=== PATIENT | male | born 1940 | race African-American/Black ===

== ENCOUNTER 2018-10-11 17:34 | Inpatient (IN) ==
[2018-10-11 18:49] LABS: Basophils # 0.1 10*3/uL (0.0-0.2); Basophils % 0.7 % (0.0-0.8); Eosinophils # 0.2 10*3/uL (0.0-0.87); Eosinophils % 2.2 % (0.00-10.9); Hematocrit 33.9 VOL% (42.0-52.0); Hemoglobin 10.9 GM/DL (14.0-18.0); Immature Granulocytes % 0.3 %; Immature Granulocytes Absolute 0.03 #; Lymphocytes # 1.2 10*3/uL (1.4-4.0); Lymphocytes % 13.2 % (21.2-54.2); Mean Corpuscular HGB Conc 32.2 GM/DL (32-36); Mean Corpuscular Volume 83.9 FL (87-102); Mean Platelet Volume 12.7 FL (9.6-12.0); Monocytes % 9.2 % (1.7-12.7); Neutrophils % 74.4 % (38.7-73.9); Platelet Count 212 T/CUMM (130-400); Red Blood Count 4.04 MC/CUMM (3.8-5.5); Red Cell Distribution Width 17.6 % (9.3-17.3)
[2018-10-11 18:56] LABS: INR 1.2; PT Patient Result 12.5 SECS
[2018-10-11 19:02] LABS: Albumin 3.2 G/DL (3.4-5.0); Bilirubin,Total 0.8 MG/DL (0.2-1.0); Osmolality,Calculated 289.5 MOS/KG (273-304); Total Protein 8.3 G/DL (6.4-8.3)
[2018-10-11] MEDS ORDERED: CLINDAMYCIN INJ 600 MG in PREMIX 1 EACH IV STA (19:26)
[2018-10-11] MEDS ORDERED: ACETAMINOPHEN 325 MG TABLET PO PRN (21:44)
[2018-10-11] MEDS ORDERED: VANCOMYCIN INJ 1,000 MG in SODIUM CHLORIDE 0.9% 250 ML IV ONE (21:44)
[2018-10-11] MEDS ORDERED: DOCUSATE SODIUM 100 MG CAPSULE PO PRN (21:44)
[2018-10-11] MEDS ORDERED: VANCOMYCIN INJ 1,000 MG in SODIUM CHLORIDE 0.9% 250 ML IV PRN (21:44)
[2018-10-11] MEDS ORDERED: BRINZOLAMIDE BRIMONIDINE LEFT EYE SCH (21:44)
[2018-10-11] MEDS: HEPARIN 5,000 UNIT/1 ML VIAL SUBCUT SCH (22:50)
[2018-10-11] MEDS: SEVELAMER CARBONATE POWDER 2.4 GM PACK PO SCH (23:01)
[2018-10-12 00:43] LABS: Basophils # 0.1 10*3/uL (0.0-0.2); Basophils % 0.6 % (0.0-0.8); Eosinophils # 0.2 10*3/uL (0.0-0.87); Eosinophils % 1.7 % (0.00-10.9); Hematocrit 33.4 VOL% (42.0-52.0); Hemoglobin 10.9 GM/DL (14.0-18.0); Immature Granulocytes % 0.3 %; Immature Granulocytes Absolute 0.03 #; Lymphocytes # 1.1 10*3/uL (1.4-4.0); Lymphocytes % 11.6 % (21.2-54.2); Mean Corpuscular HGB Conc 32.6 GM/DL (32-36); Mean Corpuscular Volume 84.6 FL (87-102); Mean Platelet Volume 12.1 FL (9.6-12.0); Monocytes % 7.9 % (1.7-12.7); Neutrophils % 77.9 % (38.7-73.9); Platelet Count 200 T/CUMM (130-400); Red Blood Count 3.95 MC/CUMM (3.8-5.5); Red Cell Distribution Width 17.5 % (9.3-17.3); White Blood Count 9.1 T/CUMM (4-12)
[2018-10-12 01:02] LABS: Calcium 8.7 MG/DL (8.5-10.1); Osmolality,Calculated 290.4 MOS/KG (273-304)
[2018-10-12] MEDS: HEPARIN 5,000 UNIT/1 ML VIAL SUBCUT SCH ×3 (06:28→22:16)
[2018-10-12] MEDS: SEVELAMER CARBONATE POWDER 2.4 GM PACK PO SCH ×2 (09:31→20:05)
[2018-10-12] MEDS: PANTOPRAZOLE 40 MG TABLET PO SCH (09:31)
[2018-10-12] MEDS: MULTIVITAMIN (CENTRUM) TABLET PO SCH (09:31)
[2018-10-12] MEDS: amLODIPine 2.5 MG TABLET PO SCH (09:32)
[2018-10-12 10:43] LABS: Hepatitis B Core IgM Quant < 0.05 Index; Hepatitis B Surface Ag Quant < 0.10 Index; Hepatitis B Surface Ag Result Negative (Negative); Hepatitis C Virus Ab Quant < 0.02 Index; Hepatitis C Virus Ab Result Negative (Negative)
[2018-10-12] MEDS ORDERED: BUPIVACAINE MPF 0.25% 30 ML VIAL ONE (11:20)
[2018-10-12] MEDS ORDERED: LIDOCAINE 1% 20 ML VIAL ONE (11:20)
[2018-10-12] MEDS ORDERED: SODIUM CHLORIDE 0.9% 250 ML IV SCH (11:30)
[2018-10-12] MEDS ORDERED: CLINDAMYCIN INJ 50 ML IV ONE (12:02)
[2018-10-12] MEDS ORDERED: PROPOFOL 200 MG/20 ML VIAL IV ONE (12:37)
[2018-10-12] MEDS ORDERED: ONDANSETRON 4 MG/2 ML VIAL ONE (12:38)
[2018-10-12] MEDS ORDERED: ETOMIDATE 40 MG/20 ML VIAL IV ONE (12:38)
[2018-10-12] MEDS ORDERED: SEVOFLURANE 1 UNIT/15 MINUTE INH ONE (12:38)
[2018-10-12] MEDS ORDERED: fentaNYL 100 MCG/2 ML VIAL ONE (12:38)
[2018-10-12] MEDS ORDERED: PHENYLEPHRINE 1 MG/10 ML SYRINGE IV ONE (12:38)
[2018-10-12] MEDS ORDERED: SKIN HEALING OINT (AQUAPHOR) 50 GM TUBE TOP PRN (15:47)
[2018-10-13 04:53] LABS: Basophils % 0.4 % (0.0-0.8); Eosinophils # 0.2 10*3/uL (0.0-0.87); Eosinophils % 2.2 % (0.00-10.9); Hematocrit 32.2 VOL% (42.0-52.0); Hemoglobin 10.1 GM/DL (14.0-18.0); Immature Granulocytes % 0.4 %; Immature Granulocytes Absolute 0.04 #; Lymphocytes % 11.4 % (21.2-54.2); Mean Corpuscular HGB Conc 31.4 GM/DL (32-36); Mean Corpuscular Volume 84.5 FL (87-102); Mean Platelet Volume 12.6 FL (9.6-12.0); Monocytes % 10.5 % (1.7-12.7); Neutrophils % 75.1 % (38.7-73.9); Platelet Count 193 T/CUMM (130-400); Red Blood Count 3.81 MC/CUMM (3.8-5.5); Red Cell Distribution Width 17.3 % (9.3-17.3); White Blood Count 9.1 T/CUMM (4-12)
[2018-10-13 05:11] LABS: Calcium 8.7 MG/DL (8.5-10.1); Osmolality,Calculated 276.8 MOS/KG (273-304)
[2018-10-13] MEDS: HEPARIN 5,000 UNIT/1 ML VIAL SUBCUT SCH ×3 (07:00→21:10)
[2018-10-13] MEDS: MULTIVITAMIN (CENTRUM) TABLET PO SCH (09:55)
[2018-10-13] MEDS: amLODIPine 2.5 MG TABLET PO SCH (09:55)
[2018-10-13] MEDS: PANTOPRAZOLE 40 MG TABLET PO SCH (09:55)
[2018-10-13] MEDS: SEVELAMER CARBONATE POWDER 2.4 GM PACK PO SCH ×2 (09:56→21:10)
[2018-10-14] MEDS: HEPARIN 5,000 UNIT/1 ML VIAL SUBCUT SCH ×3 (05:10→21:20)
[2018-10-14] MEDS: MULTIVITAMIN (CENTRUM) TABLET PO SCH (08:29)
[2018-10-14] MEDS: PANTOPRAZOLE 40 MG TABLET PO SCH (08:29)
[2018-10-14] MEDS: amLODIPine 2.5 MG TABLET PO SCH (08:29)
[2018-10-14] MEDS: SEVELAMER CARBONATE POWDER 2.4 GM PACK PO SCH ×2 (08:29→21:04)
[2018-10-14] MEDS: ONDANSETRON 4 MG/2 ML VIAL IV PRN (21:16)
[2018-10-15 05:50] LABS: Basophils % 0.5 % (0.0-0.8); Eosinophils # 0.2 10*3/uL (0.0-0.87); Eosinophils % 2.8 % (0.00-10.9); Hematocrit 32.1 VOL% (42.0-52.0); Hemoglobin 10.5 GM/DL (14.0-18.0); Immature Granulocytes % 0.4 %; Immature Granulocytes Absolute 0.03 #; Lymphocytes % 12.9 % (21.2-54.2); Mean Corpuscular HGB Conc 32.7 GM/DL (32-36); Mean Corpuscular Volume 83.4 FL (87-102); Monocytes % 9.2 % (1.7-12.7); Neutrophils % 74.2 % (38.7-73.9); Platelet Count 197 T/CUMM (130-400); Red Blood Count 3.85 MC/CUMM (3.8-5.5); Red Cell Distribution Width 17.3 % (9.3-17.3); White Blood Count 7.4 T/CUMM (4-12)
[2018-10-15 06:08] LABS: Calcium 9.3 MG/DL (8.5-10.1); Osmolality,Calculated 275.8 MOS/KG (273-304)
[2018-10-15] MEDS: ONDANSETRON 4 MG/2 ML VIAL IV PRN ×2 (07:00→19:51)
[2018-10-15] MEDS: HEPARIN 5,000 UNIT/1 ML VIAL SUBCUT SCH ×2 (07:00→17:10)
[2018-10-15] MEDS: amLODIPine 2.5 MG TABLET PO SCH (09:17)
[2018-10-15] MEDS: PANTOPRAZOLE 40 MG TABLET PO SCH (09:17)
[2018-10-15] MEDS: MULTIVITAMIN (CENTRUM) TABLET PO SCH (09:17)
[2018-10-15] MEDS: SEVELAMER CARBONATE POWDER 2.4 GM PACK PO SCH ×3 (09:18→21:02)
[2018-10-15] MEDS ORDERED: DIAZEPAM 5 MG TABLET PO ONE (11:44)
[2018-10-15] MEDS ORDERED: MIDAZOLAM 2 MG/2 ML VIAL IV ONE (11:44)
[2018-10-15] MEDS ORDERED: fentaNYL 100 MCG/2 ML VIAL IV ONE (11:44)
[2018-10-15] MEDS ORDERED: HEPARIN/NACL 0.9% 2 UNITS/ML 2,000 ML IV ONE (13:13)
[2018-10-15] MEDS ORDERED: fentaNYL 100 MCG/2 ML VIAL ONE (13:57)
[2018-10-15] MEDS ORDERED: MIDAZOLAM 2 MG/2 ML VIAL ONE (13:58)
[2018-10-15] MEDS ORDERED: HEPARIN 5,000 UNIT/1 ML VIAL ONE (13:58)
[2018-10-16] MEDS: HEPARIN 5,000 UNIT/1 ML VIAL SUBCUT SCH ×3 (02:30→17:12)
[2018-10-16 05:40] LABS: Calcium 9.7 MG/DL (8.5-10.1); Osmolality,Calculated 282.5 MOS/KG (273-304)
[2018-10-16 05:58] LABS: Basophils # 0.1 10*3/uL (0.0-0.2); Basophils % 0.7 % (0.0-0.8); Eosinophils # 0.2 10*3/uL (0.0-0.87); Eosinophils % 2.2 % (0.00-10.9); Hematocrit 32.8 VOL% (42.0-52.0); Hemoglobin 10.6 GM/DL (14.0-18.0); Immature Granulocytes % 0.8 %; Immature Granulocytes Absolute 0.06 #; Lymphocytes % 13.2 % (21.2-54.2); Mean Corpuscular HGB Conc 32.3 GM/DL (32-36); Mean Corpuscular Volume 84.3 FL (87-102); Mean Platelet Volume 13.3 FL (9.6-12.0); Neutrophils % 72.1 % (38.7-73.9); Platelet Count 183 T/CUMM (130-400); Red Blood Count 3.89 MC/CUMM (3.8-5.5); Red Cell Distribution Width 17.8 % (9.3-17.3); White Blood Count 7.3 T/CUMM (4-12)
[2018-10-16] MEDS: MULTIVITAMIN (CENTRUM) TABLET PO SCH (12:50)
[2018-10-16] MEDS: SEVELAMER CARBONATE POWDER 2.4 GM PACK PO SCH (12:51)
[2018-10-16] MEDS: PANTOPRAZOLE 40 MG TABLET PO SCH (12:51)
[2018-10-16] MEDS: amLODIPine 2.5 MG TABLET PO SCH (12:51)
[2018-10-16 16:42] VITALS: BP 104/55
== END 2018-10-16 18:26 | disposition swing bed (61) | DRG 623 ==
LOC: N.ED 17:34 → N.EDINP 20:37 → N.3E 21:11
PROVIDERS: ADMIT Internal Medicine; ATTEND Internal Medicine

== ENCOUNTER 2019-07-07 08:30 | Inpatient (IN) ==
[2019-07-07 09:38] LABS: Basophils % 0.9 % (0.0-0.8); Eosinophils % 0.7 % (0.00-10.9); Hematocrit 33.5 VOL% (42.0-52.0); Hemoglobin 10.1 GM/DL (14.0-18.0); Immature Granulocytes % 0.2 %; Immature Granulocytes Absolute 0.01 #; Lymphocytes # 1.1 10*3/uL (1.4-4.0); Lymphocytes % 23.9 % (21.2-54.2); Mean Corpuscular HGB Conc 30.1 GM/DL (32-36); Mean Corpuscular Volume 87.2 FL (87-102); Mean Platelet Volume 12.6 FL (9.6-12.0); Monocytes % 9.7 % (1.7-12.7); Neutrophils % 64.6 % (38.7-73.9); Platelet Count 158 T/CUMM (130-400); Red Blood Count 3.84 MC/CUMM (3.8-5.5); Red Cell Distribution Width 17.9 % (9.3-17.3); White Blood Count 4.4 T/CUMM (4-12)
[2019-07-07 10:02] LABS: Albumin 3.1 G/DL (3.4-5.0); Calcium 9.1 MG/DL (8.5-10.1); Osmolality,Calculated 286.7 MOS/KG (273-304)
[2019-07-07 10:18] LABS: Ferritin 3525.7 ng/ml (26-388)
[2019-07-07] MEDS ORDERED: AZITHROMYCIN 250 MG TABLET PO STA (10:23)
[2019-07-07] MEDS ORDERED: cefTRIAXone 1,000 MG in SODIUM CHLORIDE 0.9% 100 ML IV STA (10:23)
[2019-07-07] MEDS ORDERED: DEXTROSE 10% 250 ML BAG IV PRN (11:15)
[2019-07-07] MEDS ORDERED: ZALEPLON 5 MG CAPSULE PO PRN (11:15)
[2019-07-07] MEDS ORDERED: ONDANSETRON 4 MG/2 ML VIAL IV PRN (11:15)
[2019-07-07] MEDS ORDERED: DOCUSATE SODIUM 100 MG CAPSULE PO PRN (11:15)
[2019-07-07] MEDS ORDERED: GLUCAGON 1 MG VIAL IM PRN (11:15)
[2019-07-07] MEDS ORDERED: SODIUM CHLORIDE 0.9% 1,000 ML IV SCH (11:30)
[2019-07-07] MEDS: SEVELAMER CARBONATE 800 MG TABLET PO SCH ×2 (12:30→17:41)
[2019-07-07] MEDS: PANTOPRAZOLE 40 MG TABLET PO SCH (12:30)
[2019-07-07 13:41] LABS: ABG Base Excess 6.4 MMOL/L (-2.5-2.5); ABG HCO3 30.2 MMOL/L (20-26); ABG Oxygen Saturation 95.8 % (95-100); ABG PCO2 62.5 MM HG (35-48); ABG PH 7.342 (7.35-7.45); ABG PO2 83.4 MM HG (80-95); Allen Test Positive
[2019-07-07] MEDS: INSULIN REGULAR 100 UNIT/ML SUBCUT SCH ×2 (14:19→17:41)
[2019-07-07] MEDS: MIDODRINE 5 MG TABLET PO SCH ×2 (14:20→22:18)
[2019-07-07] MEDS: BRINZOLAMIDE 1% OPH SUSP 10 ML BOTTLE LEFT EYE SCH (22:17)
[2019-07-07] MEDS: LATANOPROST 0.005% OPH SOLN 2.5 ML BOTTLE LEFT EYE SCH (22:18)
[2019-07-07] MEDS: ASCORBIC ACID 500 MG TABLET PO SCH (22:18)
[2019-07-07] MEDS: GABAPENTIN 300 MG CAPSULE PO SCH (22:18)
[2019-07-08] MEDS: INSULIN REGULAR 100 UNIT/ML SUBCUT SCH ×5 (00:12→21:40)
[2019-07-08 07:28] LABS: Basophils % 0.7 % (0.0-0.8); Eosinophils # 0.1 10*3/uL (0.0-0.87); Eosinophils % 1.7 % (0.00-10.9); Hematocrit 33.9 VOL% (42.0-52.0); Hemoglobin 10.3 GM/DL (14.0-18.0); Immature Granulocytes % 0.2 %; Immature Granulocytes Absolute 0.01 #; Lymphocytes # 1.1 10*3/uL (1.4-4.0); Lymphocytes % 26.5 % (21.2-54.2); Mean Corpuscular HGB Conc 30.4 GM/DL (32-36); Mean Corpuscular Volume 86.7 FL (87-102); Mean Platelet Volume 11.8 FL (9.6-12.0); Monocytes % 7.3 % (1.7-12.7); Neutrophils % 63.6 % (38.7-73.9); Platelet Count 144 T/CUMM (130-400); Red Blood Count 3.91 MC/CUMM (3.8-5.5); Red Cell Distribution Width 17.7 % (9.3-17.3); White Blood Count 4.2 T/CUMM (4-12)
[2019-07-08 07:40] LABS: Calcium 9.7 MG/DL (8.5-10.1); Osmolality,Calculated 282.5 MOS/KG (273-304)
[2019-07-08] MEDS: BRINZOLAMIDE 1% OPH SUSP 10 ML BOTTLE LEFT EYE SCH ×2 (09:34→21:40)
[2019-07-08] MEDS: DILTIAZEM CD 120 MG CAPSULE PO SCH (09:34)
[2019-07-08] MEDS: SEVELAMER CARBONATE 800 MG TABLET PO SCH ×3 (09:34→17:27)
[2019-07-08] MEDS: MULTIVITAMIN (CENTRUM) TABLET PO SCH (09:35)
[2019-07-08] MEDS: MIDODRINE 5 MG TABLET PO SCH ×3 (09:35→21:40)
[2019-07-08] MEDS: CLOPIDOGREL 75 MG TABLET PO SCH (09:35)
[2019-07-08] MEDS: IRON (CARBONYL)/VIT C/B12/FA TABLET PO SCH (09:35)
[2019-07-08] MEDS: CETIRIZINE 10 MG TABLET PO SCH (09:35)
[2019-07-08] MEDS: PANTOPRAZOLE 40 MG TABLET PO SCH (09:35)
[2019-07-08] MEDS: ASCORBIC ACID 500 MG TABLET PO SCH ×2 (09:35→21:40)
[2019-07-08] MEDS: ACETAMINOPHEN 325 MG TABLET PO PRN ×2 (09:37→21:40)
[2019-07-08] MEDS: LATANOPROST 0.005% OPH SOLN 2.5 ML BOTTLE LEFT EYE SCH (21:40)
[2019-07-08] MEDS: GABAPENTIN 300 MG CAPSULE PO SCH (21:40)
[2019-07-09] MEDS: INSULIN REGULAR 100 UNIT/ML SUBCUT SCH ×3 (05:49→18:22)
[2019-07-09 06:18] LABS: Basophils % 0.8 % (0.0-0.8); Eosinophils # 0.1 10*3/uL (0.0-0.87); Hematocrit 33.1 VOL% (42.0-52.0); Immature Granulocytes % 0.5 %; Immature Granulocytes Absolute 0.02 #; Lymphocytes # 1.2 10*3/uL (1.4-4.0); Lymphocytes % 30.3 % (21.2-54.2); Mean Corpuscular HGB Conc 30.2 GM/DL (32-36); Mean Corpuscular Volume 87.8 FL (87-102); Mean Platelet Volume 12.2 FL (9.6-12.0); Monocytes % 7.1 % (1.7-12.7); Neutrophils % 59.3 % (38.7-73.9); Platelet Count 178 T/CUMM (130-400); Red Blood Count 3.77 MC/CUMM (3.8-5.5); Red Cell Distribution Width 17.5 % (9.3-17.3)
[2019-07-09 07:27] LABS: Calcium 9.2 MG/DL (8.5-10.1); Osmolality,Calculated 293.4 MOS/KG (273-304)
[2019-07-09] MEDS: DILTIAZEM CD 120 MG CAPSULE PO SCH (09:30)
[2019-07-09] MEDS: MIDODRINE 5 MG TABLET PO SCH ×3 (09:30→21:25)
[2019-07-09] MEDS: MULTIVITAMIN (CENTRUM) TABLET PO SCH (09:30)
[2019-07-09] MEDS: PANTOPRAZOLE 40 MG TABLET PO SCH (09:30)
[2019-07-09] MEDS: SEVELAMER CARBONATE 800 MG TABLET PO SCH ×3 (09:30→18:22)
[2019-07-09] MEDS: IRON (CARBONYL)/VIT C/B12/FA TABLET PO SCH (09:30)
[2019-07-09] MEDS: ASCORBIC ACID 500 MG TABLET PO SCH ×2 (09:30→21:25)
[2019-07-09] MEDS: CETIRIZINE 10 MG TABLET PO SCH (09:30)
[2019-07-09] MEDS: BRINZOLAMIDE 1% OPH SUSP 10 ML BOTTLE LEFT EYE SCH ×2 (09:30→21:25)
[2019-07-09] MEDS: CLOPIDOGREL 75 MG TABLET PO SCH (09:30)
[2019-07-09] MEDS: GABAPENTIN 300 MG CAPSULE PO SCH (21:25)
[2019-07-09] MEDS: LATANOPROST 0.005% OPH SOLN 2.5 ML BOTTLE LEFT EYE SCH (21:25)
[2019-07-09] MEDS: ACETAMINOPHEN 325 MG TABLET PO PRN (21:25)
[2019-07-10] MEDS: INSULIN REGULAR 100 UNIT/ML SUBCUT SCH ×5 (00:05→23:54)
[2019-07-10] MEDS: ACETAMINOPHEN 325 MG TABLET PO PRN ×3 (05:30→23:54)
[2019-07-10 07:02] LABS: Calcium 9.9 MG/DL (8.5-10.1); Osmolality,Calculated 285.4 MOS/KG (273-304)
[2019-07-10 07:23] LABS: Basophils % 0.6 % (0.0-0.8); Eosinophils % 0.6 % (0.00-10.9); Hematocrit 34.2 VOL% (42.0-52.0); Hemoglobin 10.3 GM/DL (14.0-18.0); Immature Granulocytes % 0.4 %; Immature Granulocytes Absolute 0.02 #; Lymphocytes # 1.7 10*3/uL (1.4-4.0); Lymphocytes % 36.6 % (21.2-54.2); Mean Corpuscular HGB Conc 30.1 GM/DL (32-36); Mean Corpuscular Volume 88.8 FL (87-102); Mean Platelet Volume 13.2 FL (9.6-12.0); Monocytes % 7.4 % (1.7-12.7); Neutrophils % 54.4 % (38.7-73.9); Platelet Count 209 T/CUMM (130-400); Red Blood Count 3.85 MC/CUMM (3.8-5.5); Red Cell Distribution Width 17.8 % (9.3-17.3); White Blood Count 4.7 T/CUMM (4-12)
[2019-07-10] MEDS: MULTIVITAMIN (CENTRUM) TABLET PO SCH (09:00)
[2019-07-10] MEDS: CETIRIZINE 10 MG TABLET PO SCH (09:00)
[2019-07-10] MEDS: BRINZOLAMIDE 1% OPH SUSP 10 ML BOTTLE LEFT EYE SCH ×2 (09:00→20:40)
[2019-07-10] MEDS: PANTOPRAZOLE 40 MG TABLET PO SCH (09:00)
[2019-07-10] MEDS: IRON (CARBONYL)/VIT C/B12/FA TABLET PO SCH (09:00)
[2019-07-10] MEDS: ASCORBIC ACID 500 MG TABLET PO SCH ×2 (09:00→20:40)
[2019-07-10] MEDS: MIDODRINE 5 MG TABLET PO SCH ×3 (09:00→20:40)
[2019-07-10] MEDS: SEVELAMER CARBONATE 800 MG TABLET PO SCH ×3 (09:00→16:08)
[2019-07-10] MEDS: CLOPIDOGREL 75 MG TABLET PO SCH (09:00)
[2019-07-10] MEDS: DILTIAZEM CD 120 MG CAPSULE PO SCH (09:00)
[2019-07-10] MEDS: GABAPENTIN 300 MG CAPSULE PO SCH (20:40)
[2019-07-10] MEDS: LATANOPROST 0.005% OPH SOLN 2.5 ML BOTTLE LEFT EYE SCH (20:40)
[2019-07-11 04:50] LABS: Basophils % 0.4 % (0.0-0.8); Eosinophils % 0.8 % (0.00-10.9); Hematocrit 33.4 VOL% (42.0-52.0); Hemoglobin 9.8 GM/DL (14.0-18.0); Immature Granulocytes % 0.2 %; Immature Granulocytes Absolute 0.01 #; Lymphocytes # 1.6 10*3/uL (1.4-4.0); Lymphocytes % 32.2 % (21.2-54.2); Mean Corpuscular HGB Conc 29.3 GM/DL (32-36); Mean Corpuscular Volume 88.8 FL (87-102); Neutrophils % 60.4 % (38.7-73.9); Platelet Count 226 T/CUMM (130-400); Red Blood Count 3.76 MC/CUMM (3.8-5.5); Red Cell Distribution Width 17.6 % (9.3-17.3)
[2019-07-11 05:08] LABS: Calcium 9.1 MG/DL (8.5-10.1); Osmolality,Calculated 290.5 MOS/KG (273-304)
[2019-07-11] MEDS: INSULIN REGULAR 100 UNIT/ML SUBCUT SCH ×3 (05:38→18:05)
[2019-07-11] MEDS: BRINZOLAMIDE 1% OPH SUSP 10 ML BOTTLE LEFT EYE SCH ×2 (11:01→21:10)
[2019-07-11] MEDS: SEVELAMER CARBONATE 800 MG TABLET PO SCH ×3 (11:01→17:35)
[2019-07-11] MEDS: MIDODRINE 5 MG TABLET PO SCH ×3 (11:02→21:10)
[2019-07-11] MEDS: PANTOPRAZOLE 40 MG TABLET PO SCH (11:02)
[2019-07-11] MEDS: IRON (CARBONYL)/VIT C/B12/FA TABLET PO SCH (11:02)
[2019-07-11] MEDS: DILTIAZEM CD 120 MG CAPSULE PO SCH (11:02)
[2019-07-11] MEDS: MULTIVITAMIN (CENTRUM) TABLET PO SCH (11:02)
[2019-07-11] MEDS: CLOPIDOGREL 75 MG TABLET PO SCH (11:02)
[2019-07-11] MEDS: CETIRIZINE 10 MG TABLET PO SCH (11:03)
[2019-07-11] MEDS: ASCORBIC ACID 500 MG TABLET PO SCH ×2 (11:03→21:10)
[2019-07-11] MEDS: ACETAMINOPHEN 325 MG TABLET PO PRN (16:06)
[2019-07-11] MEDS: LATANOPROST 0.005% OPH SOLN 2.5 ML BOTTLE LEFT EYE SCH (21:10)
[2019-07-11] MEDS: GABAPENTIN 300 MG CAPSULE PO SCH (21:10)
[2019-07-12] MEDS: INSULIN REGULAR 100 UNIT/ML SUBCUT SCH ×4 (00:50→17:03)
[2019-07-12] MEDS: ACETAMINOPHEN 325 MG TABLET PO PRN (00:50)
[2019-07-12 05:59] LABS: Basophils % 0.6 % (0.0-0.8); Eosinophils % 0.4 % (0.00-10.9); Immature Granulocytes % 0.8 %; Immature Granulocytes Absolute 0.04 #; Lymphocytes % 18.9 % (21.2-54.2); Mean Corpuscular HGB Conc 30.3 GM/DL (32-36); Mean Corpuscular Volume 87.1 FL (87-102); Mean Platelet Volume 11.5 FL (9.6-12.0); Monocytes % 6.1 % (1.7-12.7); Neutrophils % 73.2 % (38.7-73.9); Platelet Count 214 T/CUMM (130-400); Red Blood Count 3.79 MC/CUMM (3.8-5.5); Red Cell Distribution Width 17.7 % (9.3-17.3); White Blood Count 5.1 T/CUMM (4-12)
[2019-07-12 06:36] LABS: Anisocytosis Slight; Band Neutrophils 16 % (0-10); Hypochromasia Slight; Lymphocytes 14 % (20-55); Metamyelocytes 1 %; Nucleated Red Blood Cells 1 (0-5); Platelet Estimate Normal; Poikilocytosis Slight; Segmented Neutrophils 62 % (50-85); Smudge Cells Few; Total Cells Counted 100
[2019-07-12 06:38] LABS: Alanine Aminotransferase < 9 U/L (16-61); Albumin 2.8 G/DL (3.4-5.0); Alkaline Phosphatase 124 U/L (45-117); Aspartate Amino Transferase 22 U/L (0-37); Blood Urea Nitrogen 70 MG/DL (7-18); Calcium 9.4 MG/DL (8.5-10.1); Estimated Glom Filtration Rate 7 ML/MIN; Glucose 72 MG/DL (74-106); Osmolality,Calculated 294.7 MOS/KG (273-304); Total Protein 7.7 G/DL (6.4-8.3)
[2019-07-12 06:50] LABS: Ferritin 11457.6 ng/ml (26-388)
[2019-07-12] MEDS: PANTOPRAZOLE 40 MG TABLET PO SCH (08:36)
[2019-07-12] MEDS: MULTIVITAMIN (CENTRUM) TABLET PO SCH (08:36)
[2019-07-12] MEDS: DILTIAZEM CD 120 MG CAPSULE PO SCH (08:36)
[2019-07-12] MEDS: SEVELAMER CARBONATE 800 MG TABLET PO SCH ×3 (08:36→16:35)
[2019-07-12] MEDS: IRON (CARBONYL)/VIT C/B12/FA TABLET PO SCH (08:36)
[2019-07-12] MEDS: CLOPIDOGREL 75 MG TABLET PO SCH (08:36)
[2019-07-12] MEDS: ASCORBIC ACID 500 MG TABLET PO SCH ×2 (08:37→21:15)
[2019-07-12] MEDS: BRINZOLAMIDE 1% OPH SUSP 10 ML BOTTLE LEFT EYE SCH ×2 (08:37→21:15)
[2019-07-12] MEDS: MIDODRINE 5 MG TABLET PO SCH ×3 (08:37→21:15)
[2019-07-12] MEDS: CETIRIZINE 10 MG TABLET PO SCH (08:37)
[2019-07-12 11:06] LABS: ABG Base Excess -0.8 MMOL/L (-2.5-2.5); ABG PCO2 60.9 MM HG (35-48); ABG PH 7.264 (7.35-7.45); ABG PO2 64.1 MM HG (80-95); ABG TCO2 28.8 MMOL/L (23-27)
[2019-07-12] MEDS ORDERED: AZITHROMYCIN INJ 500 MG in SODIUM CHLORIDE 0.9% 250 ML IV SCH (13:30)
[2019-07-12] MEDS: AZITHROMYCIN INJ 500 MG in SODIUM CHLORIDE 0.9% 250 ML IV SCH (15:26)
[2019-07-12 16:59] LABS: ABG Base Excess 0.6 MMOL/L (-2.5-2.5); ABG HCO3 24.9 MMOL/L (20-26); ABG Oxygen Saturation 95.1 % (95-100); ABG PCO2 64.7 MM HG (35-48); ABG PH 7.259 (7.35-7.45); ABG PO2 83.1 MM HG (80-95); ABG TCO2 26.9 MMOL/L (23-27)
[2019-07-12] MEDS: LATANOPROST 0.005% OPH SOLN 2.5 ML BOTTLE LEFT EYE SCH (21:15)
[2019-07-13] MEDS: INSULIN REGULAR 100 UNIT/ML SUBCUT SCH ×4 (01:39→17:57)
[2019-07-13] MEDS: ACETAMINOPHEN 325 MG TABLET PO PRN (03:50)
[2019-07-13 05:05] LABS: Basophils % 0.7 % (0.0-0.8); Eosinophils # 0.1 10*3/uL (0.0-0.87); Eosinophils % 1.2 % (0.00-10.9); Hematocrit 32.1 VOL% (42.0-52.0); Hemoglobin 9.5 GM/DL (14.0-18.0); Immature Granulocytes % 0.5 %; Immature Granulocytes Absolute 0.02 #; Lymphocytes % 23.8 % (21.2-54.2); Mean Corpuscular HGB Conc 29.6 GM/DL (32-36); Mean Corpuscular Volume 88.4 FL (87-102); Mean Platelet Volume 11.5 FL (9.6-12.0); Monocytes % 6.5 % (1.7-12.7); Neutrophils % 67.3 % (38.7-73.9); Platelet Count 217 T/CUMM (130-400); Red Blood Count 3.63 MC/CUMM (3.8-5.5); Red Cell Distribution Width 17.5 % (9.3-17.3)
[2019-07-13 05:43] LABS: Alanine Aminotransferase < 9 U/L (16-61); Albumin 2.5 G/DL (3.4-5.0); Alkaline Phosphatase 115 U/L (45-117); Aspartate Amino Transferase 21 U/L (0-37); Blood Urea Nitrogen 41 MG/DL (7-18); Calcium 10.1 MG/DL (8.5-10.1); Estimated Glom Filtration Rate 10 ML/MIN; Ferritin 10858.6 ng/ml (26-388); Glucose 62 MG/DL (74-106); Osmolality,Calculated 282.7 MOS/KG (273-304); Total Protein 7.5 G/DL (6.4-8.3)
[2019-07-13 06:13] LABS: Sedimentation Rate-Westergren 77 MM/HR (0-20)
[2019-07-13] MEDS: SEVELAMER CARBONATE 800 MG TABLET PO SCH ×3 (07:54→16:15)
[2019-07-13] MEDS: DILTIAZEM CD 120 MG CAPSULE PO SCH (08:00)
[2019-07-13] MEDS: IRON (CARBONYL)/VIT C/B12/FA TABLET PO SCH (08:00)
[2019-07-13] MEDS: ASCORBIC ACID 500 MG TABLET PO SCH ×2 (08:00→21:25)
[2019-07-13] MEDS: MIDODRINE 5 MG TABLET PO SCH ×3 (08:01→21:25)
[2019-07-13] MEDS: CLOPIDOGREL 75 MG TABLET PO SCH (08:01)
[2019-07-13] MEDS: BRINZOLAMIDE 1% OPH SUSP 10 ML BOTTLE LEFT EYE SCH ×2 (08:30→21:25)
[2019-07-13] MEDS ORDERED: ZINC SULFATE 220 MG CAPSULE PO SCH ×2 (09:00)
[2019-07-13] MEDS ORDERED: AZTREONAM 2,000 MG in SODIUM CHLORIDE 0.9% 100 ML IV SCH (10:00)
[2019-07-13] MEDS: CETIRIZINE 10 MG TABLET PO SCH (10:13)
[2019-07-13] MEDS: PANTOPRAZOLE 40 MG TABLET PO SCH (10:13)
[2019-07-13] MEDS: MULTIVITAMIN (CENTRUM) TABLET PO SCH (10:13)
[2019-07-13] MEDS ORDERED: CEFEPIME 1,000 MG in SODIUM CHLORIDE 0.9% 100 ML IV ONE (11:00)
[2019-07-13] MEDS: AZITHROMYCIN INJ 500 MG in SODIUM CHLORIDE 0.9% 250 ML IV SCH (16:15)
[2019-07-13 18:14] LABS: ABG Base Excess 1.7 MMOL/L (-2.5-2.5); ABG HCO3 25.9 MMOL/L (20-26); ABG Oxygen Saturation 94.6 % (95-100); ABG PCO2 54.8 MM HG (35-48); ABG PH 7.326 (7.35-7.45); ABG TCO2 26.2 MMOL/L (23-27)
[2019-07-13] MEDS: LATANOPROST 0.005% OPH SOLN 2.5 ML BOTTLE LEFT EYE SCH (21:25)
[2019-07-14] MEDS: INSULIN REGULAR 100 UNIT/ML SUBCUT SCH ×2 (01:25→06:23)
[2019-07-14 06:39] LABS: Sedimentation Rate-Westergren 107 MM/HR (0-20)
[2019-07-14 07:42] LABS: Basophils % 0.7 % (0.0-0.8); Eosinophils # 0.1 10*3/uL (0.0-0.87); Eosinophils % 1.3 % (0.00-10.9); Hematocrit 29.9 VOL% (42.0-52.0); Hemoglobin 9.4 GM/DL (14.0-18.0); Immature Granulocytes % 0.9 %; Immature Granulocytes Absolute 0.05 #; Lymphocytes # 1.2 10*3/uL (1.4-4.0); Lymphocytes % 21.9 % (21.2-54.2); Mean Corpuscular HGB Conc 31.4 GM/DL (32-36); Mean Corpuscular Volume 83.3 FL (87-102); Mean Platelet Volume 12.1 FL (9.6-12.0); Monocytes % 5.4 % (1.7-12.7); Neutrophils % 69.8 % (38.7-73.9); Platelet Count 220 T/CUMM (130-400); Red Blood Count 3.59 MC/CUMM (3.8-5.5); Red Cell Distribution Width 17.5 % (9.3-17.3); White Blood Count 5.6 T/CUMM (4-12)
[2019-07-14 07:55] LABS: Band Neutrophils 12 % (0-10); Lymphocytes 20 % (20-55); Nucleated Red Blood Cells 1 (0-5); Platelet Estimate Normal; Segmented Neutrophils 63 % (50-85); Total Cells Counted 100
[2019-07-14 07:56] LABS: Anisocytosis Slight
[2019-07-14] MEDS: MULTIVITAMIN (CENTRUM) TABLET PO SCH (08:43)
[2019-07-14] MEDS: PANTOPRAZOLE 40 MG TABLET PO SCH (08:43)
[2019-07-14] MEDS: DILTIAZEM CD 120 MG CAPSULE PO SCH (08:43)
[2019-07-14] MEDS: ASCORBIC ACID 500 MG TABLET PO SCH (08:43)
[2019-07-14] MEDS: BRINZOLAMIDE 1% OPH SUSP 10 ML BOTTLE LEFT EYE SCH (08:43)
[2019-07-14] MEDS: CETIRIZINE 10 MG TABLET PO SCH (08:43)
[2019-07-14] MEDS: SEVELAMER CARBONATE 800 MG TABLET PO SCH (08:43)
[2019-07-14] MEDS: MIDODRINE 5 MG TABLET PO SCH (08:43)
[2019-07-14] MEDS: IRON (CARBONYL)/VIT C/B12/FA TABLET PO SCH (08:43)
[2019-07-14] MEDS: CLOPIDOGREL 75 MG TABLET PO SCH (08:43)
[2019-07-14] MEDS ORDERED: AZITHROMYCIN 250 MG TABLET PO SCH (09:00)
[2019-07-14] MEDS ORDERED: ERGOCALCIFEROL 50,000 UNIT CAPSULE PO SCH (09:00)
[2019-07-14] MEDS ORDERED: LORazepam 2 MG/1 ML VIAL IV PRN (09:12)
[2019-07-14] MEDS ORDERED: MORPHINE 4 MG/1 ML VIAL IV PRN (09:12)
[2019-07-14] MEDS ORDERED: fentaNYL 25 MCG/HR PATCH TRANSDERM SCH (10:00)
[2019-07-14 10:11] VITALS: BP 122/54
[2019-07-14] MEDS ORDERED: CEFEPIME 1,000 MG in SODIUM CHLORIDE 0.9% 100 ML IV SCH (17:00)
[2019-07-14 19:45] LABS: Albumin 2.7 G/DL (3.4-5.0); Bilirubin,Total 0.9 MG/DL (0.2-1.0); Calcium 10.3 MG/DL (8.5-10.1); Ferritin 11379.3 ng/ml (26-388); Osmolality,Calculated 288.7 MOS/KG (273-304); Total Protein 7.4 G/DL (6.4-8.3)
== END 2019-07-14 12:57 | disposition hospice, inpatient (51) | DRG 177 ==
LOC: EDUNIT# → EDBD → N.ED 08:30 → SUATTDRO 11:15 → N.EDINP 11:15 → N.2E 12:14
PROVIDERS: ADMIT Family Medicine; ATTEND Internal Medicine

== ENCOUNTER 2019-07-14 13:03 | Inpatient (IN) ==
[2019-07-14] MEDS ORDERED: LORazepam 2 MG/1 ML VIAL IV PRN (14:36)
[2019-07-14] MEDS ORDERED: MORPHINE 4 MG/1 ML VIAL IV PRN (15:00)
[2019-07-15] MEDS ORDERED: LORazepam 2 MG/1 ML VIAL IV PRN (13:46)
[2019-07-15] MEDS ORDERED: MORPHINE 4 MG/1 ML VIAL IV PRN (13:46)
[2019-07-15] MEDS ORDERED: fentaNYL 25 MCG/HR PATCH TRANSDERM SCH (14:00)
[2019-07-15 17:23] VITALS: BP 114/55
[2019-07-18] MEDS ORDERED: fentaNYL 25 MCG/HR PATCH TRANSDERM SCH (09:00)
== END 2019-07-15 23:38 | disposition expired | DRG 951 ==
LOC: N.2E 13:03
PROVIDERS: ADMIT Internal Medicine; ATTEND Internal Medicine